=== PATIENT | female | born 1980 | race American Indian/Alaskan Native ===

== ENCOUNTER 2017-10-05 13:08 | Emergency (ER) | payer BC ==
[2017-10-05 22:11] LABS: Basophils # (Auto) 0.1 K/mm3 (0.0-0.1); Basophils % (Auto) 0.8 % (0.0-1.8); Eosinophils # (Auto) 0.3 K/mm3 (0.0-0.4); Hemoglobin 11.7 gm/dl (10.1-14.3); Lymphocytes # (Auto) 3.5 K/mm3 (1.2-5.4); Lymphocytes % (Auto) 40.8 % (13.4-35.0); Mean Corpuscular HGB Conc 34 % (30-34); Mean Corpuscular Hemoglobin 26 pg (28-32); Mean Corpuscular Volume 78 fl (79-97); Monocytes # (Auto) 0.4 K/mm3 (0.0-0.8); Monocytes % (Auto) 4.3 % (0.0-7.3); Platelet Count 418 K/mm3 (140-440); Red Blood Count 4.47 M/mm3 (3.65-5.03); Red Cell Distribution Width 14.3 % (13.2-15.2)
--- NOTE | 2017-10-05 23:18 | Emergency Department Report ---
HPI - General Chief Complaint: Vaginal Bleeding Time Seen by Provider: 10/05/17 22:15 - HPI HPI: The patient is a 37 yo female with a history of chronic heavy vaginal bleeding and fibroids, who presents for evaluation of recurrence of vaginal bleeding and abdominal pain. The patient reports 6 months of constant waxing and waning vaginal bleeding. For the past one day she has experienced constant severe bleeding, associated with cramping abdominal pain, also for one day, mild in severity, exacerbated with movement. ED Past Medical Hx - Past Medical History Previous Medical History?: Yes Hx Diabetes: Yes (prediabetes) Additional medical history: Abnormal uterine bleeding - Surgical History Past Surgical History?: Yes Additional Surgical History: Uterine biopsy 09-18-2017 - Social History Smoking Status: Never Smoker Substance Use Type: Prescribed - Medications Home Medications: Home Medications Medication Instructions Recorded Confirmed Last Taken Type Acetaminophen/Codeine [Tylenol #3] 1 tab PO Q6H PRN #10 tab 10/05/17 Unknown Rx Ondansetron [Zofran TAB] 4 mg PO Q8HR PRN #15 tablet 10/05/17 Unknown Rx medroxyPROGESTERone ACETATE 5 mg PO QDAY #5 tablet 10/05/17 Unknown Rx [Provera] ED Review of Systems ROS: Stated complaint: VAGINAL BLEEDING Other details as noted in HPI Constitutional: denies: fever ENT: denies: throat or neck pain Respiratory: denies: cough, shortness of breath Cardiovascular: denies: chest pain Endocrine: denies unexplained weight loss or gain Gastrointestinal: denies: abdominal pain, nausea Genitourinary: reports vaginal bleeding denies: dysuria Musculoskeletal: denies: leg swelling Skin: denies: rash Neurological: denies: headache Hematological/Lymphatic: denies: easy bleeding or easy bruising Psych: denies sadness or hopelessness Physical Exam - Physical Exam Vital Signs: Vital Signs 10/05/17 14:26 Temperature 98.9 F Pulse Rate 99 H Respiratory 20 Rate Blood Pressure 166/81 O2 Sat by Pulse 98 Oximetry Physical Exam: General: well-nourished, well-developed, no acute distress, patient morbidly obese Head: Normocephalic, atraumatic Eyes: normal sclera ENT: Mucous membranes are pink and moist Neck: trachea midline, neck supple, No neck stiffness, no cervical adenopathy Respiratory: Breath sounds equal bilaterally, no wheezing, rales, or rhonchi Cardio: S1 and S2 present, no murmurs, rubs, gallops, capillary refill is brisk Abdomen: Normoactive bowel sounds, soft abdomen, suprapubic tenderness to palpation present, no rigidity, no guarding or rebound tenderness Chest WALL/Back: No tenderness to palpation of the chest wall, no CVA tenderness with percussion Musc: No pitting edema Skin: No rash Neuro: no facial drooping, normal speech Psych: Normal affect ED Course Vital Signs 10/05/17 14:26 Temperature 98.9 F Pulse Rate 99 H Respiratory 20 Rate Blood Pressure 166/81 O2 Sat by Pulse 98 Oximetry ED Medical Decision Making - Lab Data Result diagrams: 10/05/17 22:00 - Medical Decision Making The patient was seen and examined by myself. The patient is placed on a library monitor and continuous pulse ox. On initial evaluation, the patient was found to be in no distress. Evaluation orders are placed. Lab results were non- concerning including WBC, hemoglobin, hematocrit, platelet level, and negative test. The patient declined NS fluid bolus for txt of her dehydration, The patient eloped prior to final re-evaluation. Critical care attestation.: If time is entered above; I have spent that time in minutes in the direct care of this critically ill patient, excluding procedure time. ED Disposition Clinical Impression: Vaginal bleeding, abnormal, Menorrhagia with irregular cycle, Acute suprapubic pain Disposition: ELOPED Is pt being admited?: No Does the pt Need Aspirin: No Condition: Stable Instructions: Menorrhagia (ED), Dysfunctional Uterine Bleeding (ED), Uterine Fibroids (ED) Referrals: LAITH KELLEY MD [Staff Physician] - 3-5 Days Time of Disposition: 23:14
[2017-10-06 00:03] VITALS: BP 124/76
== END 2017-10-06 00:04 | disposition left against medical advice (07) ==
LOC: ED 13:08
DX: N92.1 Excessive and frequent menstruation with irregular cycle (principal); N93.9 Abnormal uterine and vaginal bleeding, unspecified
CPT/HCPCS: 36415; 84702; 85025; 86850; 86900; 86901; 99283

== ENCOUNTER 2017-11-10 05:49 | Day surgery (SDC) | payer BC ==
--- NOTE | 2017-11-10 00:06 | History and Physical Report ---
History of Present Illness Date of examination: 11/04/17 Chief complaint: Excessive and frequent menstruation with irregular cycle; Fibroids of uterus; Intramural , BMI 54, desires fertility History of present illness: Past History : 2 Term Births: 2 Living Children: 2 Para: 2 # 1 Delivery date: 04/21/2008 Weeks Gestation: 38 Delivery type: Delivery location: [facility] Sex: Male weight: 5-6 # 2 Delivery date: 09/14/2009 Weeks Gestation: 40 Delivery type: Delivery location: [facility] Infant Sex: Female weight: 7-2 RN COMPLIANCE History Operations: Negative Past Surgical History Abnormal PAP: negative Infection History HIV Risk Eval: no Hx of STD: Trichomonas Active Medications (reviewed today): IBUPROFEN 800 MG ORAL TABLET (IBUPROFEN) 1 po TID (PRN) OXYCODONE-ACETAMINOPHEN 5-325 MG ORAL TABLET (OXYCODONE-ACETAMINOPHEN) 1-2po q6h Current Allergies (reviewed today): No known allergies Past Medical History: Reviewed history from 09/09/2017 and no changes required: Torn right achilles tendon Past Surgical History: Reviewed history from 01/20/2017 and no changes required: Negative Past Surgical History Family History Summary: Reviewed history and no changes required: 11/09/2017 Other family member - Has No Family History of Biliary Tract Cancer - Entered On : 09/08/2017 Other family member - Has No Family History of Breast Cancer - Entered On: 2017 Other family member - Has No Family History of Brain Cancer - Entered On: 2017 Other family member - Has No Family History of Colon Cancer - Entered On: 2017 Other family member - Has No Family History of Spontaneous DVT-PE - Entered On: 09/08/2017 Other family member - Has No Family History of Kidney/Urinary Tract Cancer - Entered On: 09/08/2017 Other family member - Has No Family History of Ovarvian Cancer - Entered On: Other family member - Has No Family History of Pancreatic Cancer - Entered On: Other family member - Has No Family History of Stomach Cancer - Entered On: 09/08 Other family member - Has No Family History of Small Bowel Cancer - Entered On: 09/08/2017 Other family member - Has No Family History of Uterine Cancer - Entered On: 09/08 Social History: Reviewed history from 09/19/2016 and no changes required: Patient is Smoking History: Patient has never smoked. Risk Factors: Smoked Tobacco Use: Never smoker Smokeless Tobacco Use: Never Passive smoke exposure: no Drug use: no HIV high-risk behavior: no Alcohol use: no Exercise: no Seatbelt use: 100 % PAP Smear History: Date of Last PAP Smear: 09/22/2016 Review of Systems General Denies fever, chills, sweats, anorexia, fatigue, weakness, malaise, weight loss and sleep disorder. Complains of abnormal vaginal bleeding. Denies vaginal discharge, incontinence, dysuria, hematuria, urinary frequency, amenorrhea, menorrhagia, pelvic pain, genital sores, decreased libido , painful periods, painful sex, urinary urgency, hot flashes, vaginal dryness, vaginal itching and vaginal odor. CV Denies chest pains, palpitations, syncope, dyspnea on exertion, orthopnea, PND and peripheral edema. Resp Denies cough, dyspnea at rest, excessive sputum, hemoptysis, wheezing and pleurisy. GI Denies nausea, vomiting, diarrhea, constipation, change in bowel habits, abdominal pain, melena, hematochezia, jaundice, gas/bloating, indigestion/ heartburn, dysphagia and odynophagia. Endo Denies cold intolerance, heat intolerance, polydipsia, polyphagia, polyuria and unusual weight change. Breast Denies left breast lump, right breast lump, nipple discharge, bloody discharge from nipple, breast pain, abnormal mammogram and breast enlargement. MS Denies back pain, joint pain, joint swelling, muscle cramps, muscle weakness, stiffness, arthritis, sciatica, restless legs, leg pain at night and leg pain with exertion. Derm Denies rash, itching, dryness and suspicious lesions. Neuro Denies paralysis, paresthesias, headache, seizures, tremors, vertigo, transient blindness, frequent falls, frequent headaches and difficulty walking. Psych Denies depression, anxiety, irritability and mood swings. Eyes Denies blurring, diplopia, irritation, discharge, vision loss, eye pain and photophobia. ENT Denies earache, ear discharge, tinnitus, decreased hearing, nasal congestion, nosebleeds, sore throat and hoarseness. Allergy Denies urticaria, allergic rash, hay fever and recurrent infections. Heme Denies abnormal bruising, bleeding and enlarged lymph nodes. Physical Exam Appearance: well developed, well nourished, no acute distress Other Exams Lungs: no rales, rhonchi, or wheezes Heart: S1, S2, no murmur, rub, or gallop Abdomen: soft, non-tender, no masses, bowel sounds normal Appearance: obese Genitourinary Exam Vulva: normal, no lesions or discharge Urethral meatus: normal size and location, no lesions or discharge Urethra: no discharge Bladder: no cystocele Vagina: normal appearance, no discharge, lesions. No evidence of cystocele or rectocele. Cervix: normal appearance, no lesions, no discharge Uterus: unable to palpate Adnexa: unable to palpate due to obesity Impression & Recommendations: Problem # 1: Excessive and frequent menstruation with irregular cycle (ICD- 626.6) (DIG30-N90.1) Diagnosis explained to patient . Questions answered. Discussed with patient various medical and surgical therapies common for treatment: Hormonal/medical therapy,endometrial ablation or hysterectomy. She desires fertility and now opts for conservative therapy with cervical dilation, diagnosti hysteroscopy and uterine curettage and other indicated procedures The following medications were removed from the medication list: Medroxyprogesterone Acetate 10 Mg Oral Tablet (Medroxyprogesterone acetate) ..... 1 po tid [id number] then bid x3days then qd Ibuprofen 800 Mg Oral Tablet (Ibuprofen) ..... 1 po (prn) Aleve Capsule (Naproxen sodium caps) Her updated medication list for this problem includes: Ibuprofen 800 Mg Oral Tablet (Ibuprofen) ..... 1 po tid (prn) Problem # 2: Body Mass Index 50.0-59.9, adult (ICD-V85.43) (QTP17-L98.43) Problem # 3: Fibroids of uterus; Intramural (ICD-218.1) (GNE24-O40.1) The following medications were removed from the medication list: Medroxyprogesterone Acetate 10 Mg Oral Tablet (Medroxyprogesterone acetate) ..... 1 po tid [id number] then bid x3days then qd Ibuprofen 800 Mg Oral Tablet (Ibuprofen) ..... 1 po (prn) Aleve Capsule (Naproxen sodium caps) Her updated medication list for this problem includes: Ibuprofen 800 Mg Oral Tablet (Ibuprofen) ..... 1 po tid (prn) Oxycodone-acetaminophen 5-325 Mg Oral Tablet (Oxycodone-acetaminophen) ..... 1-2po q6h Medications Added to Medication List This Visit: 1) Ibuprofen 800 Mg Oral Tablet (Ibuprofen) .... 1 po tid (prn) 2) Oxycodone-acetaminophen 5-325 Mg Oral Tablet (Oxycodone-acetaminophen) .... 1-2po q6h Prescriptions: IBUPROFEN 800 MG ORAL TABLET (IBUPROFEN) 1 po TID (PRN) #30 x 0 Entered and Authorized by: Mallika Glaser MD Method used: Print then Give to Patient RxID: [id number] OXYCODONE-ACETAMINOPHEN 5-325 MG ORAL TABLET (OXYCODONE-ACETAMINOPHEN) 1-2po q6h #10 x 0 Entered and Authorized by: Mallika Glaser MD Method used: Print then Give to Patient RxID: [id number] Medications and Allergies Allergies Allergy/AdvReac Type Severity Reaction Status Date / Time nut - unspecified Allergy Itching on Verified 11/06/17 19:56 ears and in throat Home Medications Medication Instructions Recorded Confirmed Last Taken Type Ergocalciferol(Vitamin D2)(Nf) 50,000 unit PO DAILY 11/06/17 11/06/17 Unknown History [Vitamin D (Nf)] Phentermine HCl 37.5 mg PO DAILY 11/06/17 11/06/17 10/21/17 History metFORMIN [Glucophage] 1,000 mg PO QDAY 11/06/17 11/06/17 Unknown History Assessment and Plan - Patient Problems (1) Excessive and frequent menstruation with irregular cycle Status: Acute (2) Fibroid Status: Acute (3) BMI 50.0-59.9, adult Status: Acute
[~2017-11-10 05:49] MED LIST: ANCEF/STERILE WATER 2 GM/20 ML 2 GM/20 ML SYRINGE IV NR
[2017-11-10] MEDS ORDERED: NACL BACTERIOSTATIC INFILTRATI ONE (06:18)
[2017-11-10] MEDS ORDERED: NACL 0.9% 1000 ML 1,000 ML ONE (07:00)
[2017-11-10] MEDS ORDERED: QUELICIN ONE (07:15)
[2017-11-10] MEDS ORDERED: DIPRIVAN 10 MG/ML IV ONE ×2 (07:17)
[2017-11-10] MEDS ORDERED: SUBLIMAZE ONE ×2 (07:17→08:01)
[2017-11-10] MEDS ORDERED: XYLOCAINE MPF 2% ONE (07:20)
--- NOTE | 2017-11-10 07:39 | Anesthesia Consultation ---
Anesthesia Consult and Med Hx Date of service: 11/10/17 - Airway Anesthetic Teeth Evaluation: Good ROM Head & Neck: Adequate Mental/Hyoid Distance: Adequate Mallampati Class: Class III Intubation Access Assessment: Probably Good - Pulmonary Exam CTA: Yes - Cardiac Exam Cardiac Exam: RRR - Pre-Operative Health Status ASA Pre-Surgery Classification: ASA3 Proposed Anesthetic Plan: General - Pre-Anesthesia Comment Pre-Anesthesia Comments: 37y F with h/o obesity, PCOS, metabolic syndrome, who presents for D&C 2/2 fibroids. - Pulmonary Hx Smoking: No Hx Asthma: No - Cardiovascular System Hx Hypertension: No Hx Coronary Artery Disease: No - Central Nervous System Hx Seizures: No CVA: No Hx Psychiatric Problems: No - Endocrine Hx Renal Disease: No Hx Liver Disease: No Hx Non-Insulin Dependent Diabetes: Yes (insulin resistance) Hx Thyroid Disease: No - Other Systems Hx Cancer: No Hx Obesity: Yes - Additional Comments Anesthesia Medical History Comments: no prev anes
--- NOTE | 2017-11-10 07:40 | Anesthesia Day of Surgery ---
Anesthesia Day of Surgery - Day of Surgery Patient Examined: Yes Patient H&P Reviewed: Yes Patient is NPO: Yes Beta Blockers: No Cardiac Clearance: Yes Pulmonary Clearance: Yes Gavino's Test: N/A
[2017-11-10] MEDS ORDERED: DECADRON ONE (07:53)
[2017-11-10] MEDS ORDERED: ZOFRAN ONE (08:13)
[2017-11-10] MEDS ORDERED: NACL 0.9% IR ONE ×2 (08:14→08:15)
[2017-11-10] MEDS ORDERED: BREVIBLOC IV ONE (08:20)
--- NOTE | 2017-11-10 08:40 | Operative Report ---
Operative Report Operative Report: Date: 10/21/2017 Preoperative diagnosis: 1. Excessive and frequent menstruation with irregular cycle 2. Uterine fibroids 3. Desires fertility 4. Body mass index 54.1 Postoperative diagnosis: 1. Excessive and frequent menstruation with irregular cycle 2. Uterine fibroids 3. Desires fertility 4. Body mass index 54.1 . Procedure: 1. Cervical dilation 2. Diagnostic hysteroscopy 3. Uterine curettage Surgeon: Mallika Glaser MD Fishing Boat Captain: [] Anesthesiologist: [] Anesthesia: Gen. EBL: Minimal Findings: Uterus sounded to 11 cm. Grossly normal endometrial cavity Distention medium: Normal saline Fluid deficit: 0 mL Procedure: After risks, benefits, complications, consequences and alternatives for this procedure were explained, and patient voiced her understanding and her desire to proceed, she is taken to the OR and placed in the supine position. General anesthesia was induced. She was placed in the dorsolithotomy position. Exam under anesthesia was unremarkable. She was then prepped and draped in usual sterile fashion. Timeout was performed. The bladder was drained of approximately 100 mL's of clear yellow urine with red rubber catheter. A operative speculum was introduced was introduced into the vagina. The anterior lip of the cervix was grasped with single-tooth tenaculum and the uterus was sounded to 11 cm. The cervix was progressively dilated to allow the operative hysteroscope. The above findings were noted. Uterine curettage was then performed. The hysteroscope was introduced again no obvious evidence of perforation was noted. The procedure was ended. The speculum and the tenaculum were removed. Hemostasis was noted. No bleeding from the tenaculum site was noted. Patient tolerated procedure well and taken to recovery room in stable condition
--- NOTE | 2017-11-10 08:47 | Discharge Summary ---
Providers - Providers Date of discharge: 11/10/17 Attending physician: GRANT DICK Primary care physician: ZHAO ARZATE Hospitalization Procedures: Cervical dilation, diagnostic hysteroscopy, uterine curettage Hospital course: Unremarkable Disposition: DC-01 TO HOME OR SELFCARE - Discharge Diagnoses (1) Excessive and frequent menstruation with irregular cycle Status: Acute (2) Fibroid Status: Chronic (3) BMI 50.0-59.9, adult Status: Chronic Core Measure Documentation - Palliative Care Palliative Care/ Comfort Measures: Not Applicable - Core Measures Any of the following diagnoses?: none Exam - Constitutional Vitals: Temp Pulse Resp BP Pulse Ox 96.9 F L 95 H 20 132/92 98 11/10/17 07:08 11/10/17 07:08 11/10/17 07:08 11/10/17 07:08 11/10/17 07:08 General appearance: Present: no acute distress - Neck Neck: Present: supple - Respiratory Respiratory effort: normal - Cardiovascular Rhythm: regular - Abdominal Female genitourinary: Present: normal Plan Activity: other (no sex 1 week.) Weight Bearing Status: Full Weight Bearing Diet: regular Follow up with: ZHAO ARZATE MD [Primary Care Provider] - 7 Days GRANT DICK MD [Staff Physician] - (As scheduled)
--- NOTE | 2017-11-10 08:47 | Event Note ---
Date: 11/10/17 There was no answer at the number on the front of the chart for Mr. Ji, her and [id number] at the end of the procedure.
[2017-11-10] MEDS ORDERED: DILAUDID IV PRN (08:50)
[2017-11-10] MEDS ORDERED: ZOFRAN IV PRN (08:50)
[2017-11-10] MEDS ORDERED: TORADOL IV PRN (08:50)
--- NOTE | 2017-11-10 08:53 | Post Anesthesia Evaluation ---
- Post Anesthesia Evaluation Patient Participated: Yes Airway Patent: Yes Stable Respiratory Function: Yes Nausea/Vomiting: No Temp > 96.8F: Yes Pain Manageable: Yes Adequeate Hydration: Yes Anesthesia Complications: No Block Receding Appropriately: Not Applicable
[2017-11-10] MEDS ORDERED: TORADOL ONE (12:34)
[2017-11-10 17:55] VITALS: BP 135/78
== END 2017-11-10 12:00 | disposition home or self-care (01) ==
LOC: OR 05:49
PROVIDERS: ATTEND Obstetrics & Gynecology
DX: N72 Inflammatory disease of cervix uteri (principal); D25.9 Leiomyoma of uterus, unspecified; E11.9 Type 2 diabetes mellitus without complications; E88.81 Metabolic syndrome and other insulin resistance; E66.9 Obesity, unspecified; Z68.43 Body mass index [BMI] 50.0-59.9, adult; Z79.899 Other long term (current) drug therapy
CPT/HCPCS: 58558; 81025; 82962; 88305; A4217; J0330; J0690; J1100; J1885; J2405; J2704; J3010; J7030